=== PATIENT | female | born 1960 | race African-American/Black ===

== ENCOUNTER 2018-12-07 08:49 | Inpatient (IN) | payer OTHER ==
--- NOTE | 2018-12-07 09:06 | PDOC ---
History of Present Illness - General Chief Complaint: Chest Pain Stated Complaint: CHEST PAIN Time Seen by Provider: 12/07/18 09:06 History Source: Patient Exam Limitations: No Limitations - History of Present Illness Initial Comments: Pt is a 58 yo F, with PMH of HTN, who is presenting with complaints of chest pain and syncope x2 today. Pt states she has had intermittent chest pain ( lasting about 5 minutes) over the past 3 weeks, which radiates to her L jaw and L shoulder. The pain is not associated with n/v or diaphoresis, but she has felt more SOB when climbing the stairs recently. Pt states she was coming home from work at 8am, and syncopized x2 in the car in the driveway. Pt did not fall or hit her head. She was able to transfer herself from the car to the ambulance without difficulty. Pt denies any recent fevers/chills, headache, vision changes , palpitations, nausea/vomiting, abdominal pain, urinary symptoms, diarrhea/ constipation, or leg swelling. Known LBBB, had negative cardiac perfusion scan 06/[address] done 05/2018. Allergies: amlodipine PCP: Dr. Preciado Social: Pt denies any cigarette, alcohol, or drug use. Pt denies any recent travel or sick contacts. Surgical: no relevant history. Family: father with [place] in 70s 12/07/18 10:24 Past History - Travel Traveled outside of the country in the last 30 days: No Close contact w/someone who was outside of country & ill: No - Past Medical History Allergies/Adverse Reactions: Allergies Allergy/AdvReac Type Severity Reaction Status Date / Time amlodipine besylate Allergy Verified 12/07/18 09:00 [From [facility]] COPD: No HTN: Yes - Suicide/Smoking/Psychosocial Hx Smoking History: Never smoked Have you smoked in the past 12 months: No Information on smoking cessation initiated: No Hx Alcohol Use: No Drug/Substance Use Hx: No Review of Systems - Review of Systems Able to Perform ROS?: Yes Is the patient limited Armenian proficient: No Constitutional: Yes: Weight Stable. No: Chills, Diaphoresis, Fever, Loss of Appetite, Malaise, Weakness HEENTM: Yes: Blurred Vision. No: Double Vision, Nose Congestion, Throat Pain, Throat Swelling, Mouth Swelling Respiratory: Yes: Shortness of Breath, SOB with Exertion. No: Cough, Orthopnea , SOB at Rest, Wheezing, Productive cough Cardiac (ROS): Yes: Chest Pain, Lightheadedness, Syncope. No: Edema, Irregular Heart Rate, Palpitations, Chest Tightness ABD/GI: No: Constipated, Diarrhea, Nausea, Poor Appetite, Poor Fluid Intake, Vomiting : No: Burning, Dysuria, Pain, Urgency Musculoskeletal: No: Back Pain, Joint Pain, Joint Swelling, Muscle Pain, Muscle Weakness Integumentary: No: Rash Neurological: No: Headache, Numbness, Paresthesia, Weakness, Dizziness Psychiatric: No: Sleep Pattern Change, Change in Appetite Endocrine: Yes: Increased Urine. No: Increased Thirst, Change in Weight Hematologic/Lymphatic: No: Anemia, Blood Clots, Easy Bleeding, Easy Bruising All Other Systems: Reviewed and Negative *Physical Exam - Vital Signs Last Vital Signs Temp Pulse Resp BP Pulse Ox 97.7 F 66 18 186/88 H 100 12/07/18 09:00 12/07/18 09:00 12/07/18 09:00 12/07/18 09:00 12/07/18 09:00 - Physical Exam Comments: HTN (186/88), pt afebrile. Pt in NAD, obese body habitus. Pt alert and oriented x3. plant changer generally intact, muscular strength and sensation intact. No midline spinal tenderness, step-offs, or crepitus. Head normocephalic, atraumatic. Eyes PERRLA, EOMI. Oropharynx without erythema or exudates, no LAD b/l. No nasal congestion, hearing intact. Clear heart sounds, S1/S2, no JVD, b/l pedal edema, or heart murmur. Coarse breath sounds b/l posterior bases. No respiratory distress, wheezes, or accessory muscle use. No abdominal or CVA tenderness to palpation, no rebound, no guarding. Abdomen soft, non-distended, and with normoactive bowel sounds. Skin without jaundice or rash. 12/07/18 10:18 Vital Signs - Vital Signs #1 Blood Pressure: 172/80 MAP: 110 BP Location: Right Arm Blood Pressure Position: Sitting Pulse Rate: 82 Respiratory Rate: 14 O2 Sat by Pulse Oximetry (%): 98 Oxygen Delivery Method: Room Air ED Treatment Course - LABORATORY CBC & Chemistry Diagram: 12/07/18 09:22 12/07/18 09:22 Medical Decision Making - Medical Decision Making Pt was seen at bedside, also will be seen by attending Dr. Winslow. Pt presenting with complaints of chest pain and syncope x2 today. Pt states she has had intermittent chest pain (lasting about 5 minutes) over the past 3 weeks, which radiates to her L jaw and L shoulder. The pain is not associated with n/v or diaphoresis, but she has felt more SOB when climbing the stairs recently. Pt states she was coming home from work at 8am, and syncopized x2 in the car in the driveway. Pt did not fall or hit her head. She was able to transfer herself from the car to the ambulance without difficulty. Pt denies any recent fevers/ chills, headache, vision changes, palpitations, nausea/vomiting, abdominal pain , urinary symptoms, diarrhea/constipation, or leg swelling. Considering ACS vs arrhythmia/cardiogenic syncope vs electrolyte imbalances. Pt has no hx of seizure or seizure-like activity. No FNDs on exam. No active chest pain at this time. Ordered work-up including CBC, CMP, cardiac profile, BNP, EKG, chest x-ray. Provided pts home dosage of BP medication for improvement of HTN, as she did not take her medication this morning. Will continue to reassess pt and monitor for symptomatic improvement. ECG: NSR, LBBB (HR 61, PA 182, QRS 146, QTc 561). T wave flattening in inferior leads, without significant ST segment changes. No significant changes from prior ECG (09/2007). 12/07/18 10:19 CBC, CMP WNL Trop <.02 BNP 192, no focal infiltrates or significant congestion noted on x-ray, no LE edema. Paged Dr. Preciado's team for admission. Pt will be admitted to [facility] for syncope and chest pain. 12/07/18 11:[address] Preciado's team. Pt stable and comfortable. HTN improving and pt has no active chest pain at this time. 12/07/18 12:12 *DC/Admit/Observation/Transfer Diagnosis at time of Disposition: Chest pain Qualifiers: Chest pain type: unspecified Qualified Code(s): R07.9 - Chest pain, unspecified Syncope Qualifiers: Syncope type: unspecified Qualified Code(s): R55 - Syncope and collapse - Discharge Dispostion Condition at time of disposition: Stable Decision to Admit order: Yes - Referrals Referrals: Isi Preciado MD [Primary Care Provider] - - Patient Instructions - Post Discharge Activity
[2018-12-07 09:32] LABS: BASO % 1.1 % (0-2.0); EOS % 2.6 % (0-4.5); HEMATOCRIT 36.8 % (32.4-45.2); HEMOGLOBIN 12.2 GM/dL (10.7-15.3); LYMPH % 39.7 % (8-40); MCH 26.3 pg (25.7-33.7); MCHC 33.2 g/dl (32.0-36.0); MEAN CELL VOLUME 79.3 fl (80-96); MEAN PLT VOLUME 9.2 fl (7.5-11.1); MONO % 6.6 % (3.8-10.2); RBC 4.64 M/mm3 (3.60-5.2); RDW 15.4 % (11.6-15.6)
[2018-12-07] MEDS ORDERED: LOSARTAN POTASSIUM 50 MG TABLET (FP) PO ONE (09:44)
[2018-12-07] MEDS ORDERED: CARVEDILOL 25 MG TABLET (FP) PO ONE (09:45)
[2018-12-07] MEDS ORDERED: CARVEDILOL 12.5 MG TABLET (FP) ONE (09:50)
[2018-12-07] MEDS ORDERED: LOSARTAN POTASSIUM 50 MG TABLET (FP) ONE (09:50)
[2018-12-07 10:00] LABS: INR 0.97 (0.83-1.09); PROTHROMBIN TIME (PATIENT) 11.4 SEC (9.7-13.0)
[2018-12-07 10:03] LABS: ALBUMIN 3.7 g/dl (3.4-5.0); BILIRUBIN,TOTAL 0.3 mg/dL (0.2-1); BLOOD UREA NITROGEN 9.3 mg/dL (7-18); CREATININE 0.8 mg/dL (0.55-1.3); MAGNESIUM 2.3 mg/dL (1.8-2.4); POTASSIUM 3.9 mmol/L (3.5-5.1); TOT PROT 7.9 g/dl (6.4-8.2)
[2018-12-07 10:09] LABS: PLATELET COUNT 231 K/MM3 (134-434)
[2018-12-07 10:22] LABS: N-TERMINAL BNP 192.8 pg/ml (5-125)
--- NOTE | 2018-12-07 10:40 | PDOC ---
Attending Attestation - Resident Resident Name: Matilda Tao - ED Attending Attestation I have performed the following: I have examined & evaluated the patient, The case was reviewed & discussed with the resident, I agree w/resident's findings & plan, Exceptions are as noted - HPI HPI: 12/07/18 10:39 58 F with h/o HTN presents to ED with chest pain and syncope. Pt reports she has had midsternal chest discomfort since early this morning. While in the car, parked in her driveway, this morning, pt had a fainting episode. She denies any palpitations. Denies SOB at the time but states that she has had occasional SOB. Denies any leg swelling. Denies h/o blood clots. Denies recent travel/ immobilization. - Physicial Exam PE: 12/07/18 10:42 "GENERAL: Awake, alert, and fully oriented, in no acute distress. HEAD: No signs of trauma EYES: PERRLA, EOMI, sclera anicteric, conjunctiva clear ENT: Auricles normal inspection, hearing grossly normal, nares patent, oropharynx clear without exudates. Moist mucosa NECK: Nontender, no stepoffs, Normal ROM, supple, no lymphadenopathy, JVD, or masses LUNGS: Breath sounds equal, clear to auscultation bilaterally. No wheezes, and no crackles HEART: Regular rate and rhythm, normal S1 and S2, no murmurs, rubs or gallops ABDOMEN: Soft, nontender, normoactive bowel sounds. No guarding, no rebound. No masses EXTREMITIES: Normal range of motion, no edema. No clubbing or cyanosis. No cords, erythema, or tenderness NEUROLOGICAL: Cranial nerves II through XII intact. 5/5 strength and sensation in all extremities, Normal speech, normal gait, normal cerebellar function SKIN: Warm, Dry, normal turgor, no rashes or lesions noted. - Medical Decision Making 12/07/18 10:42 58 F with chest pain and syncope. EKG with LBBB (present since 2007) with new TWI in inferior leads. - Labs, trop - CXR - Admit tele
[2018-12-07 10:52] LABS: PH,URINE 7.5 (5.0-8.0); URINE APPEARANCE CLEAR; URINE BILIRUBIN NEGATIVE (NEGATIVE); URINE COLOR YELLOW; URINE GLUCOSE (UA) NEGATIVE (NEGATIVE); URINE KETONE NEGATIVE (NEGATIVE); URINE LEUK ESTERASE NEGATIVE (NEGATIVE); URINE NITRITE NEGATIVE (NEGATIVE); URINE PROTEIN NEGATIVE (NEGATIVE); URINE UROBILINOGEN 0.2 mg/dL (0.2-1.0)
--- NOTE | 2018-12-07 14:41 | HP ---
Admitting History and Physical - Primary Care Physician PCP: Isi Preciado - Admission Chief Complaint: Syncope and Chest pain History of Present Illness: Patient is a 58 y/o female with past medical history of HTN. Patient presented to ER after having 2 syncopal episodes this morning. Patient states that she began having right sided intermittent pressing pain which began this morning at 7:30 am. After she got home from work she was sitting in her parked car where she said her head felt weird and she passed out, this happened again shortly after. Both syncopal episodes where witnessed by her . States prior to syncopal episode she felt dizzy and had blurred vision. History Source: Patient Limitations to Obtaining History: No Limitations - Past Medical History Cardiovascular: Yes: HTN - Smoking History Smoking history: Never smoked Have you smoked in the past 12 months: No - Alcohol/Substance Use Hx Alcohol Use: No - Social History Usual Living Arrangement: Yes: With Spouse ADL: Independent History of Recent Travel: No Home Medications - Allergies Allergies/Adverse Reactions: Allergies Allergy/AdvReac Type Severity Reaction Status Date / Time amlodipine besylate Allergy Verified 12/07/18 09:00 [From [facility]] - Home Medications Home Medications: Ambulatory Orders Carvedilol [Coreg -] 25 mg PO ONCE 12/07/18 Losartan/Hydrochlorothiazide [Losartan-Hctz 100-12.5 mg Tab] mg PO DAILY Review of Systems - Review of Systems Constitutional: reports: No Symptoms Eyes: reports: Blurred Vision HENT: reports: No Symptoms Neck: reports: No Symptoms Cardiovascular: reports: No Symptoms Respiratory: reports: No Symptoms Gastrointestinal: reports: No Symptoms Genitourinary: reports: Frequency Breasts: reports: No Symptoms Reported Musculoskeletal: reports: No Symptoms Integumentary: reports: No Symptoms Neurological: reports: Headache, Numbness (B/L hands) Endocrine: reports: No Symptoms Hematology/Lymphatic: reports: No Symptoms Psychiatric: reports: No Symptoms Physical Examination Vital Signs: Vital Signs Temperature 97.7 F 12/07/18 09:00 Pulse Rate 82 12/07/18 12:15 Respiratory Rate 14 12/07/18 12:15 Blood Pressure 172/80 H 12/07/18 12:15 O2 Sat by Pulse Oximetry (%) 98 12/07/18 12:15 Constitutional: Yes: No Distress, Calm Eyes: Yes: Conjunctiva Clear HENT: Yes: Atraumatic Neck: Yes: Supple Cardiovascular: Yes: Bradycardia Respiratory: Yes: Regular, CTA Bilaterally Gastrointestinal: Yes: Normal Bowel Sounds, Soft Musculoskeletal: Yes: WNL Extremities: Yes: WNL Edema: No Neurological: Yes: Alert, Oriented Psychiatric: Yes: Alert, Oriented Labs: CBC, BMP 12/07/18 09:22 12/07/18 09:22 Imaging - Results Chest X-ray: Report Reviewed Problem List - Problems (1) Chest pain Assessment/Plan: -Cardiology consult -Tele monitoring -Troponin neg, pending repeat -EKG Code(s): R07.9 - CHEST PAIN, UNSPECIFIED Qualifiers: Chest pain type: unspecified Qualified Code(s): R07.9 - Chest pain, unspecified (2) Syncope Assessment/Plan: -Cardiology and Neurology consult -tele monitoring -Head CT scan -Carotid US Code(s): R55 - SYNCOPE AND COLLAPSE Qualifiers: Syncope type: unspecified Qualified Code(s): R55 - Syncope and collapse (3) HTN (hypertension) Assessment/Plan: -Carvedilol, Losartan -low Na diet Code(s): I10 - ESSENTIAL (PRIMARY) HYPERTENSION Assessment/Plan see problem list dvt ppx
--- NOTE | 2018-12-07 15:33 | CON.CARD ---
Consult Consult Specialty:: Cardiology Reason for Consultation:: Syncope - History of Present Illness History of Present Illness: 58 F chronic LBBB HTN with previous ho syncope. She did not eat any food yesterday and had multiple cups of coffee. Worked all night and while seated in her car this morning, felt hear head expanding and then passed out for a few seconds. A stress test in 06/2018 was negative. - History Source History Provided By: Patient - Past Medical History Cardio/Vascular: Yes: HTN - Alcohol/Substance Use Hx Alcohol Use: No - Smoking History Smoking history: Never smoked Have you smoked in the past 12 months: No - Social History ADL: Independent History of Recent Travel: No Home Medications - Allergies Allergies/Adverse Reactions: Allergies Allergy/AdvReac Type Severity Reaction Status Date / Time amlodipine besylate Allergy Verified 12/07/18 09:00 [From [facility]] - Home Medications Home Medications: Ambulatory Orders Carvedilol [Coreg -] 25 mg PO ONCE 12/07/18 Losartan/Hydrochlorothiazide [Losartan-Hctz 100-12.5 mg Tab] mg PO DAILY Review of Systems - Review of Systems Constitutional: reports: No Symptoms Eyes: reports: No Symptoms HENT: reports: No Symptoms Neck: reports: No Symptoms Cardiovascular: reports: No Symptoms Respiratory: reports: No Symptoms Gastrointestinal: reports: No Symptoms Vital Signs: Vital Signs Temperature 97.7 F 12/07/18 09:00 Pulse Rate 57 L 12/07/18 15:16 Respiratory Rate 18 12/07/18 15:16 Blood Pressure 150/58 L 12/07/18 15:16 O2 Sat by Pulse Oximetry (%) 96 12/07/18 15:16 Constitutional: Yes: Well Nourished, No Distress, Calm Eyes: Yes: Conjunctiva Clear, EOM Intact HENT: Yes: Atraumatic, Normocephalic Neck: Yes: Supple, Trachea Midline Respiratory: Yes: Regular, CTA Bilaterally Gastrointestinal: Yes: Normal Bowel Sounds, Soft Cardiovascular: Yes: Regular Rate and Rhythm JVD: No Carotid Bruit: No PMI: Non-Displaced Heart Sounds: Yes: S1, S2 Murmur: No: Systolic Murmur, Diastolic Murmur Edema: No - Other Data Labs, Other Data: CBC, BMP 12/07/18 09:22 12/07/18 09:22 INR, PTT INR 0.97 (0.83-1.09) 12/07/18 09:22 Troponin, BNP 12/07/18 09:22 Troponin I 0.02 B-Natriuretic Peptide 192.8 H Troponin, BNP 12/07/18 09:22 Troponin I 0.02 B-Natriuretic Peptide 192.8 H Imaging - Results EKG: Report Reviewed (NSR LBBB) Problem List - Problems (1) Syncope Code(s): R55 - SYNCOPE AND COLLAPSE Qualifiers: Syncope type: unspecified Qualified Code(s): R55 - Syncope and collapse Assessment/Plan Suspect vagal syncope after fasting and taking BP medications although has LBBB and reporting recent AMAYA Monitor overnight on telem Echocardiogram If negative-can go home from cards perspective. Instructed that she needs to hydrate herself and not use excessive caffeine.
--- NOTE | 2018-12-07 17:02 | EKG ---
Test Reason : Blood Pressure : / mmHG Vent. Rate : 061 BPM Atrial Rate : 061 BPM P-R Int : 182 ms QRS Dur : 146 ms QT Int : 558 ms P-R-T Axes : 044 -19 -42 degrees QTc Int : 561 ms POOR DATA QUALITY, INTERPRETATION MAY BE ADVERSELY AFFECTED NORMAL SINUS RHYTHM LEFT BUNDLE BRANCH BLOCK ABNORMAL ECG WHEN COMPARED WITH ECG OF 07-OCT-2007 05:56, NONSPECIFIC T WAVE ABNORMALITY NOW EVIDENT IN INFERIOR LEADS Confirmed by BERTHA STOCKTON MD ([id number]) on 12/07/2018 5:02:07 PM Referred By: Confirmed By:BERTHA STOCKTON MD
[2018-12-07] MEDS: HEPARIN NA (PORCINE) 5,000 UNITS/ML 1ML VIAL SQ SCH (22:28)
[2018-12-07] MEDS: CARVEDILOL 25 MG TABLET (FP) PO SCH (22:28)
[2018-12-08 01:19] VITALS: BMI 34.0
[2018-12-08 07:20] LABS: BASO % 0.9 % (0-2.0); EOS % 2.4 % (0-4.5); HEMATOCRIT 36.5 % (32.4-45.2); HEMOGLOBIN 12.1 GM/dL (10.7-15.3); LYMPH % 47.1 % (8-40); MCH 26.5 pg (25.7-33.7); MCHC 33.1 g/dl (32.0-36.0); MEAN PLT VOLUME 9.3 fl (7.5-11.1); MONO % 8.3 % (3.8-10.2); NEUT % 41.3 % (42.8-82.8); PLATELET COUNT 224 K/MM3 (134-434); RBC 4.57 M/mm3 (3.60-5.2); RDW 15.3 % (11.6-15.6); WHITE BLOOD COUNT 5.5 K/mm3 (4.0-10.0)
[2018-12-08 08:00] LABS: ALBUMIN 3.2 g/dl (3.4-5.0); BILIRUBIN,TOTAL 0.3 mg/dL (0.2-1); BLOOD UREA NITROGEN 12.7 mg/dL (7-18); CALCIUM 8.9 mg/dL (8.5-10.1); CREATININE 0.8 mg/dL (0.55-1.3); MAGNESIUM 2.4 mg/dL (1.8-2.4); POTASSIUM 3.9 mmol/L (3.5-5.1)
[2018-12-08] MEDS ORDERED: LOSARTAN POTASSIUM 50 MG TABLET (FP) PO SCH (10:00)
[2018-12-08] MEDS: CARVEDILOL 25 MG TABLET (FP) PO SCH (10:46)
[2018-12-08] MEDS: HEPARIN NA (PORCINE) 5,000 UNITS/ML 1ML VIAL SQ SCH (10:46)
--- NOTE | 2018-12-08 11:21 | ECHO ---
Name: ROBE BRAGA Exam:Adult Echocardiogram Study Date: 12/08/2018 08:11 AM Age: 58 yrs Reason For Study: LBB SYNDROME Height: 68 in Weight: 220 lb BSA: 2.1 m2 MMode/2D Measurements & Calculations IVSd: 0.97 cm Ao root diam: 2.6 cm LVIDd: 5.2 cm LA dimension: 4.4 cm LVIDs: 4.1 cm LVPWd: 0.97 cm EDV(Teich): 130.1 ml LVOT diam: 1.9 cm ESV(Teich): 73.5 ml Doppler Measurements & Calculations MV E max [place]: 114.5 cm/sec Ao V2 max: 115.5 cm/sec MV A max [place]: 61.2 cm/sec Ao max P.3 mmHg MV E/A: 1.9 Ao V2 mean: 84.5 cm/sec Ao mean P.2 mmHg Ao V2 VTI: 30.3 cm KIMBERLY(V,D): 1.6 cm2 LV V1 max P.7 mmHg MR max [place]: 373.1 cm/sec LV V1 max: 65.4 cm/sec MR max P.8 mmHg TR max [place]: 253.8 cm/sec Med Peak E' [place]: 3.6 cm/sec TR max P.8 mmHg Med E/e': 31.6 Lat Peak E' [place]: 6.5 cm/sec Lat E/e': 17.6 Left Ventricle Ejection Fraction = 35-40%. Septal motion is consistent with conduction abnormality. There is moderat e to severe global hypokinesis of the left ventricle. Right Ventricle The right ventricle is normal in size and function. Atria The left atrium is mildly dilated. Right atrial size is normal. Mitral Valve The mitral valve is normal in structure and function. There is no mitral valve stenosis. There is mil d mitral regurgitation. Tricuspid Valve The tricuspid valve is normal in structure and function. There is mild tricuspid regurgitation. Aortic Valve The aortic valve opens well. No hemodynamically significant valvular aortic stenosis. No aortic regur gitation is present. Pulmonic Valve The pulmonic valve is not well seen, but is grossly normal. There is no pulmonic valvular stenosis. Great Vessels The aortic root is normal size. Pericardium/Pleura There is no pericardial effusion. Interpretation Summary Septal motion is consistent with conduction abnormality. There is moderate to severe global hypokinesis of the left ventricle. The right ventricle is normal in size and function. The left atrium is mildly dilated. There is mild mitral regurgitation. There is mild tricuspid regurgitation. There is no pericardial effusion. Ejection Fraction = 35-40%. MD Contreras *Darcy 12/08/2018 11:21 AM
--- NOTE | 2018-12-08 11:32 | PN ---
Progress Note, Physician Chief Complaint: Syncope History of Present Illness: NAD seen by cardiology telemetry CT head negative Carotid U/S negative Echo done showed:moderate to severe hypokinesis of LV,mild left atrium dilation , mild mitral and tricuspid regurgitation, LVEF-35-40% - Current Medication List Current Medications: Active Medications Carvedilol (Coreg -) 25 mg PO BID [facility] Last Admin: 12/08/18 10:46 Dose: 25 mg Heparin Sodium (Porcine) (Heparin -) 5,000 unit SQ BID [facility] Last Admin: 12/08/18 10:46 Dose: 5,000 unit Losartan Potassium (Cozaar -) 100 mg PO DAILY [facility] Last Admin: 12/08/18 10:46 Dose: 100 mg - Objective Vital Signs: Vital Signs Temperature 98.1 F 12/08/18 05:46 Pulse Rate 56 L 12/08/18 05:46 Respiratory Rate 16 12/08/18 05:46 Blood Pressure 153/74 12/08/18 05:46 O2 Sat by Pulse Oximetry (%) 96 12/07/18 22:00 Constitutional: Yes: Well Nourished, No Distress, Calm, Obese Cardiovascular: Yes: Regular Rate and Rhythm Respiratory: Yes: Regular Gastrointestinal: Yes: Normal Bowel Sounds, Soft, Abdomen, Obese Genitourinary: Yes: WNL Musculoskeletal: Yes: WNL Extremities: Yes: WNL Edema: No Peripheral Pulses WNL: Yes Neurological: Yes: Alert, Oriented Psychiatric: Yes: Alert, Oriented Labs: CBC, BMP 12/08/18 06:53 12/08/18 06:53 INR, PTT INR 0.97 (0.83-1.09) 12/07/18 09:22 Problem List - Problems (1) Syncope Assessment/Plan: -CT head negative -U/S carotid negative -telemetry -Cardiology consult appreciated -Echo done showed:moderate to severe hypokinesis of LV,mild left atrium dilation , mild mitral and tricuspid regurgitation, LVEF-35-40% -Neurology consult pending -Transfer to [facility] for cardiac cath and EP studies as per cardiology Code(s): R55 - SYNCOPE AND COLLAPSE Qualifiers: Syncope type: unspecified Qualified Code(s): R55 - Syncope and collapse (2) Cardiomyopathy Code(s): I42.9 - CARDIOMYOPATHY, UNSPECIFIED Assessment/Plan see problem list
--- NOTE | 2018-12-08 11:33 | CONSULT ---
Consult - text type - Consultation Consultation Note: NEUROLOGY CONSULT GREATLY APPRECIATED: Events reviewed. Pt. examined. Cardiology consultation read andappreciated. This 58 yo RH female with 4 adult children is a [employer] and works night shifts. PMHX includes HTN, for which she takes carvedilol 25 mg BID and HCTZ/losartan. Admitted after 2 brief, repeated syncopal episodes while seated in car, warned by vision going "dim," chest pains and "feeling like my head is going to explode." This lasted for a few seconds and she became well-oriented to surroundings within seconds. She admits she does not regularly take her BP meds and occasionally forgets the evening dose of carvedilol. BP on fxtjleajn=189/88. Review of systems sig for headaches in childhood, associated with menses. These became infrequent after menopause. She notes few months of "numbness" and tingling" in toes, and more recently involving the hands. This can awaken her from sleep and while she is working her shift. +bruxism FH++ [address] (reviewed): Essentially normal study. EKG NSR MCV 79 SHAQ: 225 lbs. BP 153/74. Neck supple. Neg SLR. No evidence of head trauma. NEURO: Awake, alert, responsive. O X 3. CNII-CNXII: Normal. Motor: No drift. Strength normal. Reflexes normal. Plantars silent. Coordination: No FTN dystaxia. Sensation: Normal to vibration. Romberg - Gait: Normal including heels, toes, tandem. Impression: Normal exam Syncope. The classical prodrome strongly suggests an hypotensive episode. Etiology to be determined. Doubt seizure. Migraine Headaches Nocturnal paresthesia, bruxism suggestive of Restless Limbs Syndrome (RLS). Suggest: Check orthostatic BP's. Agree with Telemetry and /or Halter to r/o arrhythmia and echocardiogram to r/o cardiomyopathy/valvulopathy. Consider changing to a once a day Beta davy such as Propranolol ER (60 mg) or Nadolol (40 mg) for BP/Migraine and improved compliance. Check Fe++, TIBC, Ferritin Try pramipexole 0.25 mg 1 hour before sleep Neuro f/u as outpatient for Eval and Rx of Migraines, RLS. Thank you very much, Teo Serrano MD
[2018-12-08 11:44] VITALS: TEMP 98.2
--- NOTE | 2018-12-08 14:03 | PN ---
Progress Note, Physician Chief Complaint: Telem Sinus deion History of Present Illness: 58 F chronic LBBB HTN with previous ho syncope. She did not eat any food yesterday and had multiple cups of coffee. Worked all night and while seated in her car this morning, felt chest pain then her head expanding and then passed out for a few seconds. A stress test in 06/2018 was negative. EF normal Echo today EF 35% no ST T changes. - Current Medication List Current Medications: Active Medications Carvedilol (Coreg -) 25 mg PO BID [facility] Last Admin: 12/08/18 10:46 Dose: 25 mg Heparin Sodium (Porcine) (Heparin -) 5,000 unit SQ BID [facility] Last Admin: 12/08/18 10:46 Dose: 5,000 unit Losartan Potassium (Cozaar -) 100 mg PO DAILY [facility] Last Admin: 12/08/18 10:46 Dose: 100 mg - Objective Vital Signs: Vital Signs Temperature 98.2 F 12/08/18 10:43 Pulse Rate 65 12/08/18 10:43 Respiratory Rate 16 12/08/18 10:43 Blood Pressure 148/80 12/08/18 10:45 O2 Sat by Pulse Oximetry (%) 98 12/08/18 10:45 Constitutional: Yes: Well Nourished, No Distress Eyes: Yes: Conjunctiva Clear, EOM Intact HENT: Yes: Atraumatic, Normocephalic Neck: Yes: Supple, Trachea Midline Cardiovascular: Yes: Regular Rate and Rhythm, S1, S2. No: JVD Respiratory: Yes: Regular, CTA Bilaterally Gastrointestinal: Yes: Normal Bowel Sounds Edema: No Labs: CBC, BMP 12/08/18 06:53 12/08/18 06:53 INR, PTT INR 0.97 (0.83-1.09) 12/07/18 09:22 Problem List - Problems (1) Syncope Code(s): R55 - SYNCOPE AND COLLAPSE Qualifiers: Syncope type: unspecified Qualified Code(s): R55 - Syncope and collapse Assessment/Plan Chest pain and syncope occurred with poor PO intake although occurred while seated and with new LV dysfunction make arrhythmic etiology more likely. fasting Her labs did not suggest dehydration. Given CP, new cardiomyopathy and syncope Rec transfer to [facility] for cardiac cath and EP evaluation. Cardiac MRI can be considered. Discussed with pt and her DTR who were in agreement.
[2018-12-08 15:41] VITALS: BP 146/71; PULSE 56
[2018-12-09 04:08] LABS: SERUM IRON SATURATION 14 % (15-55); TOTAL IRON BINDING CAPACITY 313 ug/dL (250-450)
== END 2018-12-08 19:18 | disposition short-term general hospital (02) | DRG 316 ==
LOC: JER 08:49 → JERBED 10:33 → J4S 21:21
PROVIDERS: ADMIT Family Medicine; ATTEND Family Medicine
DX: I42.9 Cardiomyopathy, unspecified (principal); R07.89 Other chest pain; I10 Essential (primary) hypertension; I44.7 Left bundle-branch block, unspecified; R55 Syncope and collapse; I95.9 Hypotension, unspecified; G43.809 Other migraine, not intractable, without status migrainosus; G25.81 Restless legs syndrome
CPT/HCPCS: 36415; 70450-TC; 71045-TC-FY; 80053; 80061; 81003; 82550; 82553; 83540; 83550; 83721; 83735; 83880; 84100; 84436; 84443; 84484; 85025; 85610; 93005; 93010; 93306-TC; 93880-TC; 99285-25; J1644

== ENCOUNTER 2019-04-06 15:44 | Observation (INO) | payer OTHER ==
--- NOTE | 2019-04-06 16:08 | PDOC ---
History of Present Illness - General Chief Complaint: Weakness Stated Complaint: GENERAL WEAKNESS - History of Present Illness Initial Comments: The pt is a 59F w/ a history of HTN and a-fib (xarelto) who presents for evaluation s/p syncopal episode while sitting. She states she was sitting in the car, passed out, and was out for approximately 15 minutes and then awoke. She denies any prodromal symptoms. Currently she denies any symptoms. She has had this happen 4 times before in the past, has worn a halter monitor in the past, but has not been able to find the cause as of yet. The halter monitor was this year, she also had CTA chest this year which was neg for dissection or aneurysm Pt denies fevers/chills, BENOIT, vision changes, chest pain, trouble breathing, abdominal pain, N/V/C/D, dysuria, hematuria, or rashes. 04/06/19 16:08 Past History - Past Medical History Allergies/Adverse Reactions: Allergies Allergy/AdvReac Type Severity Reaction Status Date / Time amlodipine besylate Allergy Verified 12/07/18 09:00 [From [facility]] Home Medications: Ambulatory Orders Carvedilol [Coreg -] 25 mg PO ONCE 12/07/18 Losartan/Hydrochlorothiazide [Losartan-Hctz 100-12.5 mg Tab] 1 each PO DAILY 04/17 COPD: No HTN: Yes - Psycho Social/Smoking Cessation Hx Smoking History: Never smoked Have you smoked in the past 12 months: No Hx Alcohol Use: No Drug/Substance Use Hx: No Substance Use Type: None Hx Substance Use Treatment: No Review of Systems - Review of Systems Able to Perform ROS?: Yes Comments:: GENERAL/CONSTITUTIONAL: No fever or chills HEAD, EYES, EARS, NOSE AND THROAT: No change in vision. No change in hearing. No sore throat CARDIOVASCULAR: No chest pain or shortness of breath RESPIRATORY: Denies cough, hemoptysis GASTROINTESTINAL: No nausea, vomiting, diarrhea or constipation GENITOURINARY: No dysuria, frequency, or change in urination MUSCULOSKELETAL: No joint or muscle swelling or pain. No neck or back pain SKIN: No rash NEUROLOGIC: No headache, or change in strength/sensation ENDOCRINE: No increased thirst. No abnormal weight change HEMATOLOGIC/LYMPHATIC: No anemia, easy bleeding, or history of blood clots; + xarelto ALLERGIC/IMMUNOLOGIC: No hives or skin allergy 04/06/19 16:09 Is the patient limited Austrian proficient: No *Physical Exam - Physical Exam Comments: GENERAL: Awake, alert, and oriented to person/place/time, in no acute distress HEAD: No signs of trauma, normocephalic, atraumatic EYES: PERRLA, EOMI, sclera anicteric, conjunctiva clear ENT: Hearing grossly normal, nares patent, oropharynx clear without exudates. No uvular deviation. Moist mucosa LUNGS: No distress, speaks in full sentences, clear to auscultation bilaterally HEART: Regular rate and rhythm, normal S1 and S2, no murmurs appreciated, peripheral pulses normal and equal bilaterally ABDOMEN: Soft, nontender, normoactive bowel sounds. No guarding, no rebound EXTREMITIES: Normal inspection, Normal range of motion, no edema. No clubbing or cyanosis NEUROLOGICAL: Cranial nerves II through XII grossly intact. Normal speech, no focal sensorimotor deficits SKIN: Warm, Dry 04/06/19 16:09 ED Treatment Course - LABORATORY CBC & Chemistry Diagram: 04/06/19 16:50 04/06/19 16:50 Medical Decision Making - Medical Decision Making The pt is a 59F w/ a history of HTN, reported a-fib (xarelto), LBBB who presents for evaluation of syncope x1 today. 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
[2019-04-06] MEDS ORDERED: SODIUM CHLORIDE 0.9% 500 ML INFUS.BAG IV ONE (16:19)
[2019-04-06 17:05] LABS: BASO % 1.4 % (0-2.0); EOS % 1.1 % (0-4.5); HEMATOCRIT 38.1 % (32.4-45.2); HEMOGLOBIN 12.6 GM/dL (10.7-15.3); LYMPH % 33.1 % (8-40); MCH 26.5 pg (25.7-33.7); MCHC 33.1 g/dl (32.0-36.0); MEAN CELL VOLUME 80.1 fl (80-96); MEAN PLT VOLUME 9.5 fl (7.5-11.1); MONO % 5.4 % (3.8-10.2); PLATELET COUNT 245 K/MM3 (134-434); RBC 4.75 M/mm3 (3.60-5.2); RDW 14.9 % (11.6-15.6); WHITE BLOOD COUNT 6.8 K/mm3 (4.0-10.0)
[2019-04-06 17:26] LABS: INR 1.27 (0.83-1.09)
[2019-04-06 17:29] LABS: ACTIVATED PTT 33.5 SECONDS (25.2-36.5)
[2019-04-06 17:49] LABS: ALBUMIN 3.6 g/dl (3.4-5.0); BILIRUBIN,TOTAL 0.1 mg/dL (0.2-1); BLOOD UREA NITROGEN 14.6 mg/dL (7-18); CALCIUM 8.9 mg/dL (8.5-10.1); CREATININE 0.8 mg/dL (0.55-1.3); MAGNESIUM 2.2 mg/dL (1.8-2.4); POTASSIUM 3.6 mmol/L (3.5-5.1); TOT PROT 7.8 g/dl (6.4-8.2)
[2019-04-06] MEDS ORDERED: ASPIRIN 81 MG CHEWABLE TABLETS PO ONE (17:54)
[2019-04-06] MEDS ORDERED: ASPIRIN 81 MG CHEWABLE TABLETS ONE (17:59)
[2019-04-06 19:35] LABS: N-TERMINAL BNP 150.5 pg/ml (5-125)
[2019-04-06] MEDS ORDERED: RIVAROXABAN 20 MG TABLET PO ONE (20:21)
--- NOTE | 2019-04-06 22:41 | PDOC ---
Documentation entered by Oscar Kuo SCRIBE, acting as scribe for Yadira Blakely MD. Yadira Blakely MD: This documentation has been prepared by the Ayaan bullard Daniel, SCRIBE, under my direction and personally reviewed by me in its entirety. I confirm that the documentation accurately reflects all work, treatment, procedures, and medical decision making performed by me. Attending Attestation - Resident Resident Name: Thomas Salcedo - HPI HPI: 04/06/19 17:38 The patient is a 59 year old female with a past medical history of afib (xarelto , ablation scheduled for 05/17) and HTN here today for evaluation of a syncopal episode. The patient reports that she was in her car when she syncopized and states that she was out for approximately "15 minutes". gives report of recurrnt brief < 30s syncopal events in rapid succession over period of abou 5 min and then return to baseline. Patient reports that she has multiple similar episodes in the past but states that this one was longer than her previous ones. She also notes that she felt some chest pain prior to her syncopal episode. Patient denies headache, lightheadedness. Denies fever, chills. Denies shortness of breath. Denies nausea, vomiting, diarrhea, abdominal pain. Allergies: amlodopine besylate PCP: Isi Preciado 04/06/19 18:54 - Physicial Exam PE: 04/06/19 18:02 NAD EOMI, SHOAIB MMM, OP WNL NCAT, no midline cervical tenderness RRR, nl s1/s2, no m/r/g CTABL, no w/r/r Soft, NTND No edema, WWP, no rash Neuro grossly intact, gait WNL, moving all 4 A&O x 3, mood/affect WNL. - Medical Decision Making 04/06/19 18:55 59yoF w/ hxo f AF, CHF pending ablation in april, occasional syncopal events (multiple per year) presnets w/ syncopal event today while seated in car. Extremely similar to recent presentation in our system that was also syncope while seated in car. Pt endorses intermittent medication compliance, no lunch today, states she still feels "weak". - labs - ekg - cxr - cardaic moinotr - ivf - continue home meds - admit.
[2019-04-06 22:59] VITALS: BMI 34.9
--- NOTE | 2019-04-07 01:10 | HP ---
Admitting History and Physical - Primary Care Physician PCP: Isi Preciado - Admission Chief Complaint: Syncope, Midsternal Chest Pain, Weakness History of Present Illness: This is a 59 y/o woman with a PMHx of HTN, Afib (on Xarelto), Syncope. Who presents to the ED with her family for syncope, chest pain and generalized weakness. Patient reports having non-radiating mid-sternal CP while at rest prior to the syncopal episode. The patient's states" she passed out for a few minutes." The patient reports having syncopal episodes in the past x4 wearing a Holter Monitor. The patient's daughter provided documents from [facility] for a scheduled Implantable Loop Recorder (ILR) 04/12, then Cardiac Ablation 05/10. The patient denies fever, chills, cough, headache, SOB, palpitations, N/V/D, constipation, melena, hematochezia, dysuria. 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 Cardiovascular: Yes: AFIB, HTN ...: No - Past Surgical History Additional Past Surgical History: Cardiac Cath - Smoking History Smoking history: Never smoked Have you smoked in the past 12 months: No - Alcohol/Substance Use Hx Alcohol Use: No History of Substance Use: reports: None - Social History Usual Living Arrangement: Yes: With Spouse, With Child Do you think of yourself as: Straight/Heterosexual ADL: Independent History of Recent Travel: No Home Medications - Allergies Allergies/Adverse Reactions: Allergies Allergy/AdvReac Type Severity Reaction Status Date / Time amlodipine besylate Allergy Verified 12/07/18 09:00 [[facility]] - Home Medications Home Medications: Ambulatory Orders Carvedilol [Coreg -] 25 mg PO ONCE 12/07/18 Losartan/Hydrochlorothiazide [Losartan-Hctz 100-12.5 mg Tab] 1 each PO DAILY 04/17 Home Medications (free text): Losartan 100mg po QD. HCTZ 25mg po QD. Xarelto 20mg po HS. Metoprolol Succinate 50mg po QD Family Medical History Family History: Unable to Obtain Review of Systems - Review of Systems Constitutional: reports: Weakness Eyes: reports: Blurred Vision HENT: reports: No Symptoms Neck: reports: No Symptoms Cardiovascular: reports: Chest Pain Respiratory: reports: No Symptoms Gastrointestinal: reports: No Symptoms Genitourinary: reports: No Symptoms Breasts: reports: No Symptoms Reported Musculoskeletal: reports: No Symptoms Integumentary: reports: No Symptoms Neurological: reports: No Symptoms Endocrine: reports: No Symptoms Hematology/Lymphatic: reports: No Symptoms Psychiatric: reports: No Symptoms Pain Intensity: 0 Physical Examination Vital Signs: Vital Signs Temperature 97.9 F 04/06/19 22:55 Pulse Rate 67 04/06/19 22:55 Respiratory Rate 20 04/06/19 22:55 Blood Pressure 149/82 04/06/19 22:55 O2 Sat by Pulse Oximetry (%) 100 04/06/19 23:00 Constitutional: Yes: Well Nourished, No Distress, Calm Eyes: Yes: WNL, Conjunctiva Clear, EOM Intact, PERRL HENT: Yes: WNL, Atraumatic, Normocephalic Neck: Yes: WNL, Supple, Trachea Midline Cardiovascular: Yes: WNL, Regular Rate and Rhythm, S1, S2 Respiratory: Yes: WNL, Regular, CTA Bilaterally Gastrointestinal: Yes: WNL, Normal Bowel Sounds, Soft, Abdomen, Obese Renal/: Yes: WNL Breast(s): Yes: WNL Musculoskeletal: Yes: WNL Extremities: Yes: WNL Edema: No Peripheral Pulses WNL: Yes Neurological: Yes: WNL, Alert, Oriented, Cran Nerves II-XII Intact ...Motor Strength: WNL Psychiatric: Yes: WNL, Alert, Oriented Labs: CBC, BMP 04/06/19 16:50 04/06/19 16:50 Laboratory Results - last 24 hr 04/06/19 04/06/19 04/06/19 16:50 16:50 16:50 WBC 6.8 RBC 4.75 Hgb 12.6 Hct 38.1 MCV 80.1 MCH 26.5 MCHC 33.1 RDW 14.9 Plt Count 245 MPV 9.5 Absolute Neuts (auto) 4.0 Neutrophils % 59.0 D Lymphocytes % 33.1 D Monocytes % 5.4 Eosinophils % 1.1 Basophils % 1.4 Nucleated RBC % 0 PT with INR 15.00 H INR 1.27 H PTT (Actin FS) 33.5 Sodium 140 Potassium 3.6 Chloride 103 Carbon Dioxide 31 Anion Gap 6 L BUN 14.6 Creatinine 0.8 Est GFR (CKD-EPI)AfAm 92.22 Est GFR (CKD-EPI)NonAf 79.57 Random Glucose 107 H Calcium 8.9 Magnesium 2.2 Total Bilirubin 0.1 L AST 42 H ALT 34 Alkaline Phosphatase 115 Troponin I 0.13 H B-Natriuretic Peptide 150.5 H Total Protein 7.8 Albumin 3.6 Current Medications Generic Name Dose Route Start Last Admin Trade Name Freq PRN Reason Stop Dose Admin Aspirin 81 mg 04/07/19 10:00 Asa - PO DAILY FANNIE Hydrochlorothiazide 25 mg 04/07/19 10:00 Hctz - PO DAILY FANNIE Losartan Potassium 100 mg 04/07/19 10:00 Cozaar - PO DAILY FANNIE Metoprolol Succinate 50 mg 04/07/19 10:00 Toprol Xl - PO DAILY FANNIE Rivaroxaban 20 mg 04/07/19 18:00 Xarelto PO DAILY@1800 FANNIE Intake & Output 04/04/19 04/05/19 04/06/19 04/07/19 23:59 23:59 23:59 23:59 Intake Total 100 Balance 100 Weight 101.333 kg Imaging - Results Chest X-ray: Image Reviewed EKG: Image Reviewed Problem List - Problems (1) Syncope Assessment/Plan: Likely due to Arrhythmia vs Neurologic Head CT- neg ICH EKG- SR with PVCs (new), LBBB (unchanged from prior study) Continue cardiac monitoring Appreciate Cardiac consult Serial Enzymes Neurochecks Last Echo, Carotid Doppler 11/2018- reviewed Per patient's family she is scheduled for a Loop Recorder placement at [facility] 04/12 Monitor CBC, BMP Fall Precautions Code(s): R55 - SYNCOPE AND COLLAPSE Qualifiers: Syncope type: unspecified Qualified Code(s): R55 - Syncope and collapse (2) Chest pain Assessment/Plan: r/o AK Elevated Troponin x1, will trend Continue cardiac monitoring EKG reviewed Appreciate Cardiology consult Continue Asa, BB Code(s): R07.9 - CHEST PAIN, UNSPECIFIED Qualifiers: Chest pain type: unspecified Qualified Code(s): R07.9 - Chest pain, unspecified (3) Elevated troponin Assessment/Plan: r/o ACS Serial Enzymes Appreciate Cardiology consult EKG- reviewed Asa give in ED, will continue Last echo 11/2018- reviewed Code(s): R79.89 - OTHER SPECIFIED ABNORMAL FINDINGS OF BLOOD CHEMISTRY (4) A-fib Assessment/Plan: stable EKG- SR with PVCs, LBBB [id number] 3 Continue Xarelto Code(s): I48.91 - UNSPECIFIED ATRIAL FIBRILLATION (5) HTN (hypertension) Assessment/Plan: Stable Monitor BP Continue Losartan, Metoprolol with parameters Monitor renal function Code(s): I10 - ESSENTIAL (PRIMARY) HYPERTENSION Qualifiers: Hypertension type: unspecified Qualified Code(s): I10 - Essential (primary ) hypertension Assessment/Plan This is a 59 y/o woman with a PMHx of HTN, Afib (on Xarelto). Placed in Observation for Syncope, Chest Pain r/o ACS, Elevated Troponin for further evaluation of their emergent condition. Plan: See Problem List FEN Replete lytes prn Low Na Diet DVT ppx OOb SCDs Continue Xarelto Code Status: Full Code Dispo: Observation Visit type - Emergency Visit Emergency Visit: Yes ED Registration Date: 04/06/19 Care time: The patient presented to the Emergency Department on the above date and was hospitalized for further evaluation of their emergent condition. - New Patient This patient is new to me today: Yes Date on this admission: 04/06/19 - Critical Care Critical Care patient: No
[2019-04-07 07:46] LABS: BASO % 0.6 % (0-2.0); EOS % 1.4 % (0-4.5); HEMATOCRIT 35.7 % (32.4-45.2); HEMOGLOBIN 11.7 GM/dL (10.7-15.3); LYMPH % 35.8 % (8-40); MCH 26.4 pg (25.7-33.7); MCHC 32.9 g/dl (32.0-36.0); MEAN CELL VOLUME 80.2 fl (80-96); MEAN PLT VOLUME 9.6 fl (7.5-11.1); NEUT % 56.2 % (42.8-82.8); PLATELET COUNT 224 K/MM3 (134-434); RBC 4.45 M/mm3 (3.60-5.2); WHITE BLOOD COUNT 6.9 K/mm3 (4.0-10.0)
[2019-04-07 08:06] LABS: BLOOD UREA NITROGEN 10.4 mg/dL (7-18); CREATININE 0.7 mg/dL (0.55-1.3); PHOSPHOROUS 3.7 mg/dL (2.5-4.9); POTASSIUM 3.2 mmol/L (3.5-5.1)
--- NOTE | 2019-04-07 08:54 | CON.CARD ---
Consult Consult Specialty:: Cardiology Referred by:: Dr. Garcia Reason for Consultation:: Syncope and NSTEMI - History of Present Illness Chief Complaint: Syncope and chest pain History of Present Illness: 59 year-old obese woman with a PMHx non-ischemic cardiomyopathy, systolic CHF with moderate LV systolic dysfunction, chronic LBBB, atrial flutter on Xarelto, ILR implant planned for 04/12/19 and atrial flutter ablation scheduled for 05/10, HTN, DM-II, HLD, syncope, and glaucoma presented to ED 04/06/19 with recurrent syncope, chest discomfort and generalized weakness. Patient reports having non-radiating mid-sternal CP while at rest prior to the syncopal episode. She passed out for a few minutes. Patient reports that she had multiple similar episodes in the past but states that this one was longer than her previous ones. She denies shortness of breath, palpitation, edema, orthopnea or PND. She has good baseline exercise tolerance and is able to walk several blocks without exertional chest pain or SOB. Troponin is trending up, 0.13 -> 0.79. BNP 150. ECG 04/06/19 revealed sinus rhythm with LBBB. Tele shows sinus rhythm with occasional APCs or VPCs. No bradycardia or pauses noted. Cardiac studies at [facility]: 1) Cardiac cath 12/11/18: minimal non-obstructive CAD. 2) Echocardiogram 12/11/18: Normal LV size with moderately diffuse LV hypokinesis. LVEF 40%. Normal RV. Mild LA dilatation. FCAV without stenosis. Thickened MV with mild MR. No pericardial effusion. 3) Cardiac MRI (partial study) 12/12/18: Negative for infiltrative disease. 4) Declined EP study in November 2018. Cardiac studies at [facility]: 1) Echocardiogram 12/08/18: Normal LV size with moderate to severe diffuse LV hypokinesis. PSM. LVEF = 35-40%. Normal RV. Mild LA dilatation. FCAV without stenosis. Thickened MV with mild MR. No pericardial effusion. 2) Carotid duplex 12/07/18: Normal without stenosis. 3) Regadenoson nuclear stress test 07/18/18: No ischemia. LVEF 51%. 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 Cardio/Vascular: Yes: AFIB, HTN ...: No - Alcohol/Substance Use Hx Alcohol Use: No History of Substance Use: reports: None - Smoking History Smoking history: Never smoked Have you smoked in the past 12 months: No - Social History ADL: Independent History of Recent Travel: No Home Medications - Allergies Allergies/Adverse Reactions: Allergies Allergy/AdvReac Type Severity Reaction Status Date / Time amlodipine besylate Allergy Verified 12/07/18 09:00 [[facility]] - Home Medications Home Medications: Ambulatory Orders Carvedilol [Coreg -] 25 mg PO ONCE 12/07/18 Losartan/Hydrochlorothiazide [Losartan-Hctz 100-12.5 mg Tab] 1 each PO DAILY 04/17 Hydrochlorothiazide 25 mg PO DAILY 04/07/19 Metoprolol Tartrate 50 mg PO DAILY 04/07/19 Rivaroxaban [Xarelto -] 20 mg PO DAILY 04/07/19 Review of Systems - Review of Systems Constitutional: reports: No Symptoms Eyes: reports: No Symptoms HENT: reports: No Symptoms Neck: reports: No Symptoms Cardiovascular: reports: Chest Pain Respiratory: reports: No Symptoms Genitourinary: reports: No Symptoms Breasts: reports: No Symptoms Reported Musculoskeletal: reports: No Symptoms Integumentary: reports: No Symptoms Neurological: reports: Syncope Vital Signs: Vital Signs Temperature 98.0 F 04/07/19 05:00 Pulse Rate 63 04/07/19 05:00 Respiratory Rate 16 04/07/19 05:00 Blood Pressure 140/70 04/07/19 05:00 O2 Sat by Pulse Oximetry (%) 100 04/07/19 04:00 General: Well developed. Obese. No acute distress. Head: Normocephalic. Atraumatic, Eyes: PERRLA, EOMI. Sclerae anicteric. Conjunctivae clear. Neck: Supple. No JVD. No bruits. Heart: Normal S1, S2: Regular rhythm and rate. No murmur. No gallop or rub. Lungs: Symmetrical air entry. Clear to auscultation. No crackles. No wheezing or rhonchi. Abdomen: Soft. Bowel sound positive. Non tender. No masses. Extremities: No edema. No clubbing or cyanosis. PD 2+, equal bilaterally. Neuro: Intact, no focal findings. AAO X3. - Other Data Labs, Other Data: CBC, BMP 04/07/19 06:00 04/07/19 06:00 INR, PTT INR 1.27 (0.83-1.09) H 04/06/19 16:50 Troponin, BNP 04/06/19 04/07/19 16:50 00:01 Troponin I 0.13 H 0.76 H* B-Natriuretic Peptide 150.5 H Troponin, BNP 04/06/19 04/07/19 16:50 00:01 Troponin I 0.13 H 0.76 H* B-Natriuretic Peptide 150.5 H Assessment/Plan 59 year-old obese woman with a PMHx non-ischemic cardiomyopathy, systolic CHF with moderate LV systolic dysfunction, chronic LBBB, atrial flutter on Xarelto, ILR implant planned for 04/12/19 and atrial flutter ablation scheduled for 05/10, HTN, DM-II, HLD, syncope, and glaucoma presented to ED 04/06/19 with recurrent syncope while sitting, chest discomfort and generalized weakness. Troponin is trending up, 0.13 -> 0.79. BNP 150. ECG 04/06/19 revealed sinus rhythm with LBBB. Tele shows sinus rhythm with occasional APCs or VPCs. No bradycardia or pauses noted. Cardiac studies at [facility]: 1) Cardiac cath 12/11/18: minimal non-obstructive CAD. 2) Echocardiogram 12/11/18: Normal LV size with moderately diffuse LV hypokinesis. LVEF 40%. Normal RV. Mild LA dilatation. FCAV without stenosis. Thickened MV with mild MR. No pericardial effusion. 3) Cardiac MRI (partial study) 12/12/18: Negative for infiltrative disease. 4) Declined EP study in November 2018. Cardiac studies at [facility]: 1) Echocardiogram 12/08/18: Normal LV size with moderate to severe diffuse LV hypokinesis. PSM. LVEF = 35-40%. Normal RV. Mild LA dilatation. FCAV without stenosis. Thickened MV with mild MR. No pericardial effusion. 2) Carotid duplex 12/07/18: Normal without stenosis. 3) Regadenoson nuclear stress test 07/18/18: No ischemia. LVEF 51%. 1. Recurrent syncope of unclear etiology. Further electrophysiology study to rule out AV dayanara dysfunction and tachycardia and tilt table test should be done. The patient will be transferred to [facility] today. 2. Chest pain with elevated troponin. She has minimal non-obstructive CAD from cardiac cath on 12/11/18. Unclear mechanism of NSTEMI: Coronary artery spam, hypoperfusion during syncope or small plaque rupture were possible causes. Statin therapy should be started. Aspirin, and beta davy therapy will be continued. 3. Atrial flutter from [employer] patch monitor. Currently in sinus rhythm Continue Xarelto and metoprolol
[2019-04-07] MEDS ORDERED: HYDROCHLOROTHIAZIDE 25 MG TABLET (FP) PO SCH (10:00)
[2019-04-07] MEDS ORDERED: ASPIRIN 81 MG CHEWABLE TABLETS PO SCH (10:00)
[2019-04-07] MEDS ORDERED: LOSARTAN POTASSIUM 50 MG TABLET (FP) PO SCH (10:00)
--- NOTE | 2019-04-07 10:22 | DS ---
Physical Examination Vital Signs: Vital Signs Temperature 98.2 F 04/07/19 09:10 Pulse Rate 65 04/07/19 09:10 Respiratory Rate 18 04/07/19 09:10 Blood Pressure 152/77 04/07/19 09:10 O2 Sat by Pulse Oximetry (%) 100 04/07/19 04:00 Findings/Remarks: PATIENT WITH SYNCOPE, SCHEDULED OUTPATIENT FOR LOOP RECORDER AND CARDIAC ABLATION FOR 05/10/19 Constitutional: Yes: Mild Distress Cardiovascular: Yes: Pulse Irregular Gastrointestinal: Yes: Soft Musculoskeletal: Yes: Muscle Weakness Edema: Yes Integumentary: Yes: WNL Wound/Incision: Yes: Clean/Dry Neurological: Yes: Alert, Oriented, Pre-Existing Deficit ...Motor Strength: LLE, RLE Labs: CBC, BMP 04/07/19 06:00 04/07/19 06:00 Discharge Summary Problems reviewed: Yes Reason For Visit: SYNCOPE ELEVATED TROPONN LEVEL Current Active Problems A-fib (Acute) Elevated troponin (Acute) HTN (hypertension) (Acute) LBBB (left bundle branch block) (Acute) Syncope (Acute) Procedures: Principal: CXR/LABS Other Procedures: LABS Hospital Course: ADMITTED FOR SYNCOPE, H/O IRREGULAR RYTHM AND LOOP RECORDER/ABLATION SCHEDULED FOR 05/10/19 ADMITTED ON TELEMETRY WILL TRANSFER TO [facility] D/ CARDIOLOGY Plan of Treatment: TRANSFER [facility] CARDIO Goals: CARDIAC WORKUP Condition: Good - Instructions Referrals: Isi Preciado MD [Primary Care Provider] - Disposition: TRANSFER ACUTE CARE/OTHER HOSP - Home Medications Comprehensive Discharge Medication List: Ambulatory Orders Carvedilol [Coreg -] 25 mg PO ONCE 12/07/18 Losartan/Hydrochlorothiazide [Losartan-Hctz 100-12.5 mg Tab] 1 each PO DAILY 04/17 Hydrochlorothiazide 25 mg PO DAILY 04/07/19 Metoprolol Tartrate 50 mg PO DAILY 04/07/19 Rivaroxaban [Xarelto -] 20 mg PO DAILY 04/07/19 Prescription Drug Monitoring Program (I-STOP) results: I-STOP not reviewed
--- NOTE | 2019-04-07 11:29 | EKG ---
Test Reason : Blood Pressure : / mmHG Vent. Rate : 083 BPM Atrial Rate : 083 BPM P-R Int : 196 ms QRS Dur : 168 ms QT Int : 468 ms P-R-T Axes : 030 -18 073 degrees QTc Int : 549 ms SINUS RHYTHM WITH OCCASIONAL PREMATURE VENTRICULAR COMPLEXES LEFT BUNDLE BRANCH BLOCK ABNORMAL ECG WHEN COMPARED WITH ECG OF 07-DEC-2018 09:05, PREMATURE VENTRICULAR COMPLEXES ARE NOW PRESENT QRS DURATION HAS INCREASED NONSPECIFIC T WAVE ABNORMALITY NO LONGER EVIDENT IN INFERIOR LEADS Confirmed by BERTHA STOCKTON MD ([id number]) on 04/07/2019 11:29:27 AM Referred By: Confirmed By:BERTHA STOCKTON MD
[2019-04-07 13:28] VITALS: BP 166/86; PULSE 70; TEMP 98
[2019-04-07] MEDS ORDERED: RIVAROXABAN 20 MG TABLET PO SCH (18:00)
--- NOTE | 2019-04-08 10:53 | EKG ---
Test Reason : Blood Pressure : / mmHG Vent. Rate : 063 BPM Atrial Rate : 063 BPM P-R Int : 202 ms QRS Dur : 154 ms QT Int : 498 ms P-R-T Axes : 046 -25 009 degrees QTc Int : 509 ms SINUS RHYTHM WITH PREMATURE ATRIAL COMPLEXES LEFT BUNDLE BRANCH BLOCK ABNORMAL ECG WHEN COMPARED WITH ECG OF 06-APR-2019 15:49, PREMATURE VENTRICULAR COMPLEXES ARE NO LONGER PRESENT PREMATURE ATRIAL COMPLEXES ARE NOW PRESENT NONSPECIFIC T WAVE ABNORMALITY NOW EVIDENT IN INFERIOR LEADS Confirmed by BERTHA STOCKTON MD ([id number]) on 04/08/2019 10:52:55 AM Referred By: Confirmed By:BERTHA STOCKTON MD
== END 2019-04-07 13:32 | disposition short-term general hospital (02) ==
LOC: JER 15:44 → JERBED 18:50 → J4S 22:18
PROVIDERS: ADMIT Internal Medicine; ATTEND Family Medicine
PROC: 3E0337Z Introduction of Electrolytic and Water Balance Substance into Peripheral Vein, Percutaneous Approach (ICD-10-PCS; principal; 2019-04-06)
DX: R55 Syncope and collapse (principal); R77.8 Other specified abnormalities of plasma proteins; I11.0 Hypertensive heart disease with heart failure; I44.7 Left bundle-branch block, unspecified; I48.91 Unspecified atrial fibrillation; R07.89 Other chest pain; I42.8 Other cardiomyopathies; I50.20 Unspecified systolic (congestive) heart failure; I48.92 Unspecified atrial flutter; Z79.01 Long term (current) use of anticoagulants; Z88.8 Allergy status to other drugs, medicaments and biological substances
CPT/HCPCS: 36415; 70450-TC; 71045-TC-FY; 80048; 80053; 83735; 83880; 84100; 84484; 85025; 85610; 85730; 93005; 93010; 99285-25; G0378

== ENCOUNTER 2024-07-12 12:37 | Observation (INO) | payer OTHER ==
[2024-07-12 16:19] LABS: EOS % 1.9 % (0-4.5); HEMATOCRIT 39.1 % (32.4-45.2); HEMOGLOBIN 12.7 GM/dL (10.7-15.3); LYMPH % 40.2 % (8-40); MCH 25.5 pg (25.7-33.7); MCHC 32.4 g/dl (32.0-36.0); MEAN CELL VOLUME 78.9 fl (80-96); MEAN PLT VOLUME 9.4 fl (7.5-11.1); MONO % 7.6 % (3.8-10.2); NEUT % 49.3 % (42.8-82.8); PLATELET COUNT 204 10^3/uL (134-434); RBC 4.96 M/mm3 (3.60-5.2); RDW 15.8 % (11.6-15.6); WHITE BLOOD COUNT 6.1 K/mm3 (4.0-10.0)
[2024-07-12 16:26] LABS: INR 1.32 (0.83-1.09); PROTHROMBIN TIME (PATIENT) 14.5 SEC (9.7-13.0)
[2024-07-12 16:28] LABS: ACTIVATED PTT 38.2 SECONDS (25.2-36.5)
[2024-07-12 16:40] LABS: CALCIUM 9.6 mg/dL (8.5-10.1)
[2024-07-12 16:41] LABS: ALBUMIN 3.8 g/dl (3.4-5.0); BLOOD UREA NITROGEN 9.4 mg/dL (7-18)
[2024-07-12 16:44] LABS: CREATININE 0.8 mg/dL (0.55-1.3)
[2024-07-12 16:45] LABS: BILIRUBIN,TOTAL 0.6 mg/dL (0.2-1)
[2024-07-12 16:46] LABS: TOT PROT 7.7 g/dl (6.4-8.2)
[2024-07-12] MEDS ORDERED: ASPIRIN 81 MG CHEWABLE TABLETS ONE (17:24)
[2024-07-12] MEDS: ASPIRIN 81 MG CHEWABLE TABLETS PO ONE (17:27)
[2024-07-12 20:07] VITALS: BMI 33.3
[2024-07-12] MEDS: FUROSEMIDE 40 MG/4 ML INJECTABLE VIAL IVPUSH ONE (20:32)
[2024-07-12] MEDS: ATORVASTATIN CA 80 MG TABLET (FP) PO SCH (21:51)
[2024-07-12] MEDS: VALSARTAN 80 MG TABLET PO ONE (22:55)
[2024-07-13 09:04] LABS: POTASSIUM 3.4 mmol/L (3.5-5.1)
[2024-07-13 09:11] LABS: CALCIUM 9.6 mg/dL (8.5-10.1)
[2024-07-13 09:14] LABS: ALBUMIN 3.6 g/dl (3.4-5.0); BILIRUBIN,TOTAL 0.8 mg/dL (0.2-1); BLOOD UREA NITROGEN 9.8 mg/dL (7-18)
[2024-07-13 09:16] LABS: TOT PROT 7.3 g/dl (6.4-8.2)
[2024-07-13 09:17] LABS: CREATININE 0.8 mg/dL (0.55-1.3)
[2024-07-13] MEDS ORDERED: CARVEDILOL 6.25 MG TABLET (FP) PO SCH (10:09)
[2024-07-13] MEDS: ASPIRIN 81 MG CHEWABLE TABLETS PO SCH (10:41)
[2024-07-13] MEDS: FUROSEMIDE 20 MG TABLET (FP) PO SCH (10:42)
[2024-07-13] MEDS: SACUBITRIL/VALSARTAN 24 MG-26 MG TABLET PO SCH (10:42)
[2024-07-13] MEDS: FUROSEMIDE 40 MG/4 ML INJECTABLE VIAL IVPUSH SCH (10:59)
[2024-07-13] MEDS: CARVEDILOL 6.25 MG TABLET (FP) PO SCH (11:00)
[2024-07-13] MEDS: VALSARTAN 80 MG TABLET PO SCH (11:00)
[2024-07-13] MEDS: EMPAGLIFLOZIN (JARDIANCE) 10 MG TABLET PO SCH (13:17)
[2024-07-13] MEDS: RIVAROXABAN 20 MG TABLET PO SCH (18:22)
[2024-07-13] MEDS: CARVEDILOL 12.5 MG TABLET (FP) PO SCH (21:05)
[2024-07-14] MEDS: CARVEDILOL 25 MG TABLET (FP) PO SCH (09:24)
[2024-07-14 13:05] LABS: POTASSIUM 3.4 mmol/L (3.5-5.1)
[2024-07-14 13:06] LABS: CALCIUM 9.2 mg/dL (8.5-10.1)
[2024-07-14 13:10] LABS: CREATININE 0.8 mg/dL (0.55-1.3)
[2024-07-14 15:17] VITALS: RESP 18
[2024-07-14] MEDS: POTASSIUM CHLORIDE TABS 20 MEQ TABLET.ER (FP) PO SCH (17:54)
[2024-07-14 18:12] VITALS: BP 162/69; PULSE 63; TEMP 98.2
== END 2024-07-14 07:45 | disposition home or self-care (01) ==
LOC: JER 12:37 → INTOOBSV 18:39 → JERBED 18:39 → J4W 19:53
PROVIDERS: ADMIT Internal Medicine; ATTEND Internal Medicine
PROC: 3E033GC Introduction of Other Therapeutic Substance into Peripheral Vein, Percutaneous Approach (ICD-10-PCS; principal; 2024-07-12)
DX: I11.0 Hypertensive heart disease with heart failure (principal); I50.20 Unspecified systolic (congestive) heart failure; I44.7 Left bundle-branch block, unspecified; I42.9 Cardiomyopathy, unspecified; D86.89 Sarcoidosis of other sites; I48.91 Unspecified atrial fibrillation; R79.89 Other specified abnormal findings of blood chemistry; Z95.810 Presence of automatic (implantable) cardiac defibrillator; Z79.01 Long term (current) use of anticoagulants; Z88.8 Allergy status to other drugs, medicaments and biological substances
CPT/HCPCS: 36415; 71045-TC-FY; 80048; 80053; 80061; 83036; 83735; 83880; 84443; 84484; 85025; 85610; 85730; 93005; 93010; 93306-TC; 99285-25; G0378